=== PATIENT | female | born 1960 | race Caucasian/White ===

== ENCOUNTER 2025-06-23 17:11 | Inpatient (IN) | payer MEDICARE, OTHER ==
[~2025-06-23] VITALS: Ht 167.6 cm; Wt 69.9 kg
[2025-06-23 17:54] VITALS: BP 102/65
[2025-06-23] MEDS ORDERED: ATOR20TA PO (18:43)
[2025-06-23] MEDS ORDERED: CHOL100034 PO (18:43)
[2025-06-23] MEDS ORDERED: LISI2.5T90 PO (18:43)
[2025-06-23] MEDS ORDERED: MULT-225 PO (18:43)
[2025-06-23] MEDS ORDERED: DONE10TA11 PO (18:43)
[2025-06-23] MEDS ORDERED: RISP1TAB7 PO (18:43)
[2025-06-23] MEDS ORDERED: FURO-152 PO (18:43)
[2025-06-23] MEDS ORDERED: BUSP10TA3 PO (18:43)
[2025-06-23] MEDS ORDERED: BENZ0.5T43 PO (18:43)
[2025-06-23] MEDS ORDERED: LITH150C PO (18:43)
[2025-06-23] MEDS ORDERED: CRAN500T3 PO (18:43)
[2025-06-23] MEDS ORDERED: FERR-56 PO (18:43)
[2025-06-23] MEDS ORDERED: SENN8.6T19 PO (18:43)
[2025-06-23] MEDS ORDERED: DIVA500T2 PO (18:43)
[2025-06-23] MEDS ORDERED: [UNRECOGNIZED DRUG - OTHER] PO (18:43)
[2025-06-23] MEDS ORDERED: POTA10CA43 PO (18:43)
[2025-06-23 19:31] LABS: PLATELET COUNT (AUTO) 275 K/uL (179-408); RED BLOOD CELL COUNT(AUTO) 3.86 MIL/uL (3.63-4.92); RED CELL DISTRIBUTION WIDTH 13.1 % (12.3-17.7); WHITE BLOOD COUNT (AUTO) 5.6 K/uL (3.8-11.8)
[2025-06-23 19:41] LABS: CREATININE 0.8 mg/dL (0.6-1.3); SODIUM SERUM 139.0 mmol/L (136-145); UREA NITROGEN, BLOOD 20.0 mg/dL (7-18)
[2025-06-23 19:45] LABS: ETHANOL < 3 MG/DL (0-10)
[2025-06-23 19:47] LABS: ASPARTATE AMINOTRANSFERASE 27.0 U/L (15-37); TOTAL PROTEIN, SERUM 7.4 g/dL (6.4-8.2)
[2025-06-23 20:05] LABS: *BILIRUBIN,URIN NEGATIVE (NEGATIVE); *BLOOD, URINE NEGATIVE (NEGATIVE); *CLARITY,URINE CLEAR (CLEAR); *COLOR,URINE YELLOW (YELLOW); *KETONES,URINE NEGATIVE (NEGATIVE); *PROTEIN,URINE NEGATIVE (NEGATIVE); *UROBILINOGEN,URINE 0.2 E.U./dl (NORMAL); LEUKOCYTE ESTERASE ,URINE NEGATIVE (NEGATIVE); NITRITE, URINE NEGATIVE (NEGATIVE); UGLUCOSE NEGATIVE (NEGATIVE)
[2025-06-23 20:13] LABS: *AMPHETAMINE, URINE NEGATIVE (NEGATIVE); *BARBITURATE, URINE NEGATIVE (NEGATIVE); *BENZODIAZEPINE, URINE NEGATIVE (NEGATIVE); *CANNABINOID, URINE NEGATIVE (NEGATIVE); *COCCAINE, URINE NEGATIVE (NEGATIVE); *OPIATE, URINE NEGATIVE (NEGATIVE); *PHENCYCLIDINE SCREEN,URINE NEGATIVE (NEGATIVE); FENTANYL, URINE NEGATIVE (NEGATIVE)
[2025-06-23] MEDS: BLOOD SUGAR DIAGNOSTIC 1 EACH STRIP VI ONE (22:40)
[2025-06-23] MEDS ORDERED: MAG HYDROX/AL HYDROX/SIMETH 30 ML LIQUID UDC PO PRN (22:45)
[2025-06-23] MEDS ORDERED: LORAZEPAM 1 MG TABLET PO PRN ×2 (22:45)
[2025-06-23] MEDS ORDERED: ACETAMINOPHEN 325 MG TABLET PO PRN (22:45)
[2025-06-23] MEDS ORDERED: MAGNESIUM HYDROXIDE 30 ML LIQUID UDC PO PRN (22:45)
[2025-06-23] MEDS ORDERED: TEMAZEPAM 7.5 MG CAPSULE PO PRN ×2 (22:45)
[2025-06-24] MEDS ORDERED: TEMAZEPAM 15 MG CAPSULE PO PRN (06:00)
[2025-06-24 07:51] VITALS: BP 98/62; TEMP 98.2; O2SAT 99
[2025-06-24] MEDS ORDERED: POTA-10 PO (08:47)
[2025-06-24] MEDS ORDERED: CHOL-35 PO (08:47)
[2025-06-24] MEDS ORDERED: AMIN30LI2 PO (08:47)
[2025-06-24] MEDS: FUROSEMIDE 20 MG TABLET PO SCH (12:59)
[2025-06-24] MEDS: POTASSIUM CHLORIDE 10 MEQ TAB.PRT.SR PO SCH (13:01)
[2025-06-24 15:14] VITALS: BP 96/60; TEMP 98; O2SAT 98
[2025-06-24] MEDS: PROTEIN SUPPLEMENT (PROSTAT) 30 ML LIQUID PO SCH (16:06)
[2025-06-24 20:00] VITALS: BP 92/48; TEMP 97.3; O2SAT 95
[2025-06-24] MEDS: SENNOSIDES 1 TABLET PO SCH (20:30)
[2025-06-24] MEDS: ATORVASTATIN 20 MG TABLET PO SCH (20:30)
[2025-06-24] MEDS: DIVALPROEX 500 MG TABLET.DR PO SCH (20:30)
[2025-06-25 08:33] LABS: GLUCOSE FASTING 82.0 mg/dL (70-115)
[2025-06-25] MEDS ORDERED: Medication Not On Formulary EA (Multivitamins (Multiple Vitamin) 1 TAB) PO SCH (09:00)
[2025-06-25] MEDS: LISINOPRIL 5 MG TABLET PO SCH (09:00)
[2025-06-25] MEDS ORDERED: LISINOPRIL PO SCH (09:00)
[2025-06-25] MEDS ORDERED: Medication Not On Formulary EA (Potassium Chloride (K-Dur) 10 MEQ) PO SCH (09:00)
[2025-06-25] MEDS: FERROUS SULFATE 325 MG TABEC PO SCH (09:00)
[2025-06-25] MEDS: MULTIVIT, IRON, MIN NO. 8, FA TABLET PO SCH (09:00)
[2025-06-25] MEDS: CHOLECALCIFEROL 1,000 UNIT TABLET PO SCH (09:00)
[2025-06-25 15:27] VITALS: BP 96/57; TEMP 98; O2SAT 100
[2025-06-25 20:00] VITALS: BP 102/62; TEMP 97; O2SAT 98
[2025-06-26 20:05] VITALS: BP 114/71; TEMP 97.9; O2SAT 98
[2025-06-27 19:56] VITALS: BP 138/66; TEMP 98.1; O2SAT 100
[2025-06-28 08:45] VITALS: BP 99/70; TEMP 98.1; O2SAT 100
[2025-06-28 19:45] VITALS: BP 116/68; TEMP 98.1; O2SAT 98
[2025-06-29 09:34] VITALS: BP 116/78; TEMP 97.5; O2SAT 98
[2025-06-29 16:39] VITALS: BP 107/67; TEMP 98; O2SAT 97
[2025-06-29 20:00] VITALS: BP_SYST 137; BP_SYST 145; BP_DIAS 54; BP_DIAS 86; TEMP 97.6; TEMP 97.8; O2SAT 98; O2SAT 99
[2025-06-30 07:55] VITALS: BP 118/70; TEMP 98; O2SAT 99
[2025-06-30 15:08] VITALS: BP 107/67; TEMP 98; O2SAT 99
[2025-06-30 20:00] VITALS: BP 100/56; TEMP 97.9; O2SAT 97
[2025-07-01 09:23] VITALS: BP 129/76; TEMP 98; O2SAT 100
[2025-07-01 15:02] VITALS: BP 102/69; TEMP 98; O2SAT 100
[2025-07-01] MEDS ORDERED: OLANZAPINE 10 MG VIAL IM PRN (17:30)
[2025-07-01 19:46] VITALS: BP 103/65; TEMP 98.1; O2SAT 97
[2025-07-02 07:39] VITALS: BP 96/57; TEMP 98; O2SAT 98
[2025-07-02 15:45] VITALS: BP 108/72; TEMP 98; O2SAT 98
[2025-07-02 20:00] VITALS: BP 140/60; TEMP 98.1; O2SAT 99
[2025-07-03 16:27] VITALS: BP 111/49; TEMP 98; O2SAT 98
[2025-07-03 20:58] VITALS: BP 115/75; TEMP 97.7; O2SAT 100
[2025-07-04 08:50] VITALS: BP 124/77; TEMP 97.7; O2SAT 100
[2025-07-04 20:00] VITALS: BP 124/78; TEMP 97.6; O2SAT 98
[2025-07-05 08:06] VITALS: BP 110/75; TEMP 97.7; O2SAT 100
== END 2025-07-05 15:55 | DRG 885 ==
LOC: ER 17:21 → GPS 22:00
PROVIDERS: ADMIT Psychiatry & Neurology Psychiatry; ATTEND Student in an Organized Health Care Education/Training Program
DX: F25.0 Schizoaffective disorder, bipolar type (principal); I11.0 Hypertensive heart disease with heart failure; F03.94 Unspecified dementia, unspecified severity, with anxiety; G40.909 Epilepsy, unspecified, not intractable, without status epilepticus; J44.9 Chronic obstructive pulmonary disease, unspecified; K21.9 Gastro-esophageal reflux disease without esophagitis; Z79.899 Other long term (current) drug therapy; Z88.0 Allergy status to penicillin; E78.5 Hyperlipidemia, unspecified; I50.9 Heart failure, unspecified; E11.9 Type 2 diabetes mellitus without complications; R79.89 Other specified abnormal findings of blood chemistry
CPT/HCPCS: 36415; 85025; G0480